=== PATIENT | female | born 1960 | race Caucasian/White ===

== ENCOUNTER 2022-09-21 09:20 | Emergency (ER) | payer BC ==
[~2022-09-21] VITALS: Ht 165.1 cm; Wt 85.9 kg
[2022-09-21 09:29] VITALS: BP 149/98
== END 2022-09-21 12:48 | disposition home or self-care (01) ==
LOC: ER 09:20
DX: M79.605 Pain in left leg (principal); M19.90 Unspecified osteoarthritis, unspecified site; Z86.718 Personal history of other venous thrombosis and embolism; Z72.89 Other problems related to lifestyle; Z98.890 Other specified postprocedural states
CPT/HCPCS: 93971; 99284

== ENCOUNTER 2023-01-22 12:44 | Outpatient (CLI) | payer BC | END 2023-01-22 23:59 | disposition home or self-care (01) | LOC: RAD 12:44 | PROVIDERS: ATTEND Internal Medicine | DX: R10.11 Right upper quadrant pain (principal) | CPT/HCPCS: 76700 ==